=== PATIENT | female | born 1995 ===

== ENCOUNTER 2016-11-23 20:41 | Inpatient (IN) | payer SELFPAY ==
[~2016-11-23] VITALS: Ht 152.4 cm; Wt 45.0 kg
[2016-11-23] MEDS ORDERED: LACTATED RINGER'S 1000ML 1,000 ML IV SCH (21:14)
[2016-11-23] MEDS ORDERED: PENICILLIN G POTASSIUM IV 6 MU in DEXTROSE 5% 250ML 250 ML IV ONE (21:30)
[2016-11-23 21:41] LABS: HEMATOCRIT 37.7 % (37-47); MEAN CELL VOLUME 87.5 fL (80-100); MEAN CORPUSCULAR HEMOGLOBIN 30.6 pg (25-34); MEAN PLATELET VOLUME 12.6 fL (7.4-10.4); PLATELET COUNT 196 K/uL (130-400); RED BLOOD COUNT 4.31 M/uL (4.2-5.4); WHITE BLOOD COUNT 7.77 K/uL (4.8-10.8)
[2016-11-23] MEDS: LACTATED RINGER'S 1000ML 1,000 ML IV PRN ×2 (21:48→22:45)
[2016-11-23] MEDS ORDERED: EpHEDrine SULFATE INJ 50 MG/ML AMP ONE (22:10)
[2016-11-23] MEDS ORDERED: BUPIVACAINE 0.25% 30 ML VIAL ONE (22:10)
[2016-11-23] MEDS ORDERED: FENTANYL 2MCG/ML ROPIV 1.25MG/ML 100ML BAG EPI ONE (22:11)
[2016-11-23] MEDS ORDERED: FENTANYL CITRATE INJ 50 MCG/1 ML 2 ML VIAL ONE (22:11)
[2016-11-23] MEDS ORDERED: NALOXONE HCL INJ 1 MG in SODIUM CHLORIDE 0.9% 1000ML 1,000 ML IV PRN (22:23)
[2016-11-23] MEDS ORDERED: LACTATED RINGER'S 1000ML 500 ML IV PRN (22:23)
[2016-11-23] MEDS ORDERED: DiphenhydrAMINE HCL 50 MG/ML VIAL IV PRN (22:30)
[2016-11-23] MEDS ORDERED: NALOXONE HCL INJ 0.4 MG/1 ML VIAL/CARP IV PRN (22:30)
[2016-11-23] MEDS ORDERED: EpHEDrine SULFATE INJ 50 MG/ML AMP IV PRN (22:30)
[2016-11-23] MEDS ORDERED: NALBUPHINE HCL INJ 10 MG/ML AMP IV PRN (22:30)
[2016-11-23] MEDS ORDERED: ONDANSETRON INJ 2 MG/ML 2 ML VIAL IV PRN (22:30)
[2016-11-23] MEDS ORDERED: FENTANYL 2MCG/ML ROPIV 1.25MG/ML 100ML BAG EPI PRN (22:30)
--- NOTE | 2016-11-23 22:53 | Progress Note ---
Progress Note 21 female P1001 with no care presents tonight in labor with SROM clear fluid. Patient is 38.1 weeks by late ultrasound done while she was in the ER. Cervix 5/80/-2/vertex. GBS status unknown. NO allergies. FHT Cat 1. Will start antibiotics. Draw labs. Patient wants epidural for pain. Anticipate vaginal delivery. Plans to give baby up for adoption.
--- NOTE | 2016-11-23 23:22 | HISTORY & PHYSICAL EXAMINATION ---
DATE OF ADMISSION: 11/23/2016 CHIEF COMPLAINT: Labor. HISTORY OF PRESENT ILLNESS: The patient is a 21-year-old female, para 1-0-0-1, at approximately 38 weeks' and 1 day by ultrasound done in the ER at a prior hospital. The patient states that she has had no care. She is from [place], plans to give the baby up for adoption, was traveling to [place] for meeting with an contract attorney to arrange an adoption and presented with ruptured membranes and onset of labor. She is currently 5 cm, 80%, -2, vertex with clear fluid. Her GBS status is unknown. PAST MEDICAL HISTORY: Negative. PAST SURGICAL HISTORY: Negative. PAST OBSTETRIC HISTORY: x1 in [place] without any complications. ALLERGIES: No known allergies. MEDICATIONS: None. PHYSICAL EXAMINATION: HEENT: Within normal limits. LUNGS: Clear to auscultation. COR: Regular rate and rhythm. ABDOMEN: Gravid. heart tone category 1. Abdomen is soft. EXTREMITIES: Within normal limits. No edema. NEUROLOGIC: Intact. LABORATORIES: The patient is O positive, rubella immune. ASSESSMENT: Term in labor. PLAN: We will start antibiotics for GBS prophylaxis. We will draw labs. The patient is anticipating a normal vaginal delivery.
[2016-11-24 00:22] VITALS: Ht 152.4 cm; Wt 45.0 kg
[2016-11-24] MEDS ORDERED: PENICILLIN G POTASSIUM IV 3 MU in DEXTROSE 5% 100ML 100 ML IV PRN (01:30)
[2016-11-24] MEDS ORDERED: OXYTOCIN 30 UNITS/500ML NSS IV ONE (03:55)
[2016-11-24] MEDS ORDERED: LACTATED RINGER'S 1000ML 1,000 ML IV SCH (04:35)
--- NOTE | 2016-11-24 04:35 | Progress Note ---
Progress Note Delivery Note live male over intact perineum COOKIE with CANx1 and arm x1 with Apgars 9/9 weight pending. Delayed cord clamping followed by cord blood obtained and placenta delivered spontaneously and intact. No tears. EBL 200 ml. Final sponge and instrument count are correct. Mom and baby are stable.
[2016-11-24] MEDS ORDERED: ACETAMINOPHEN/CODEINE 300/30MG TAB PO PRN ×2 (04:45)
[2016-11-24] MEDS ORDERED: OXYTOCIN 30 UNITS/500ML NSS IV PRN (04:45)
[2016-11-24] MEDS ORDERED: DIPHTHERIA/TETANUS/PERTUSSIS 0.5 ML SYR/VIAL IM. ONE (04:45)
[2016-11-24] MEDS ORDERED: ACETAMINOPHEN 325 MG TAB PO PRN (04:45)
[2016-11-24] MEDS ORDERED: SUPERCREAM 0.870 % 15GM JAR EXT PRN (04:45)
[2016-11-24] MEDS ORDERED: LANOLIN OINT EXT PRN ×2 (04:45)
[2016-11-24] MEDS ORDERED: BENZOCAINE 20% AER SPR 82.5 GM CAN EXT PRN (04:45)
[2016-11-24] MEDS ORDERED: HYDROCORTISONE ACETATE 25 MG SUPP PR PRN (04:45)
[2016-11-24] MEDS: IBUPROFEN 600 MG TAB PO PRN ×3 (06:20→15:47)
[2016-11-24] MEDS ORDERED: PRENATAL VITAMIN TAB PO SCH (08:00)
[2016-11-24] MEDS ORDERED: INFLUENZA VIRUS QUAD VACCINE 0.5 ML SYR IM. ONE (08:00)
[2016-11-24] MEDS ORDERED: INFLUENZA ADMINISTRATION CHARGE ONE (08:00)
[2016-11-24] MEDS ORDERED: FERROUS SULFATE 325 MG TAB PO SCH (08:00)
--- NOTE | 2016-11-24 08:24 | Anesthesia Procedure Note ---
Anesthesia Epidural Removal Nt Date & Time Nov 24, 2016 at 08:23 Vital Signs Pain Intensity: 10.0 Notes Mental Status: alert / awake / arousable, participated in evaluation Nausea / Vomiting: adequately controlled Pain: adequately controlled Airway Patency, RR, SpO2: stable & adequate BP & HR: stable & adequate Hydration State: stable & adequate Neuraxial Anesthesia: was administered Anesthetic Complications: no major complications apparent, pt satisfied with anesthetic care Epidural: removed without complications, with tip intact
[2016-11-24 12:21] VITALS: BP 112/73; PULSE 79; TEMP 37
[2016-11-24 15:45] VITALS: BP 115/75; PULSE 65; TEMP 36.8; O2SAT 100
[2016-11-24 19:25] VITALS: BP 110/70; PULSE 70; TEMP 36.7; O2SAT 98
[2016-11-24 23:25] VITALS: BP 108/70; PULSE 69; TEMP 36.6; O2SAT 99
[2016-11-25 04:15] VITALS: BP 110/70; PULSE 62; TEMP 36.6; O2SAT 99
[2016-11-25 07:22] LABS: HEMATOCRIT 33.5 % (37-47)
[2016-11-25 08:15] VITALS: BP 111/77; PULSE 70; TEMP 36.9; O2SAT 99
--- NOTE | 2016-11-25 09:13 | OB/GYN Progress Note ---
AGILE COACH Progress Note Date of Service: Nov 25, 2016. Patient is seen and examined. Online translation services are used to communicate with her She feels well, no complaints. Ambulating without dizziness Voiding without difficulty Tolerating regular diet with out N&V Bleeding is minimal No fever/ chills/ CP/ SOB/ N&V/ Leg pain She is giving her baby for adoption. She likes to be discharged. Date Time Temp Pulse Resp B/P Pulse Ox O2 Delivery O2 Flow Rate FiO2 11/25/16 04:15 36.6 62 18 110/70 99 Room Air 11/24/16 23:25 99 Room Air 11/24/16 23:25 36.6 69 16 108/70 99 Room Air 11/24/16 19:25 36.7 70 16 110/70 98 Room Air 11/24/16 19:25 98 Room Air 11/24/16 15:45 36.8 65 18 115/75 Room Air 11/24/16 15:45 100 Room Air 11/24/16 12:21 37.0 79 18 112/73 Room Air Last 24 Hours Test 11/24/16 13:32 11/25/16 06:56 Hemoglobin 11.3 g/dL Hematocrit 33.5 % PE: General: Alert, orientedx3, NAD Abd: soft, NT, fundus firm, below Umbilicus Perineum intact, Lochia rubra minimal Ext; NT, no edema AP: 21 yo s/p , ppd# 1 VSS Afebrile doing well Desires d/c home [employer] services supervisor are involved All questions were answered Instructions were given when to call D/C home , fu in office in 6 weeks
--- NOTE | 2016-11-25 09:21 | Discharge Instructions ---
Discharge Instructions Admission Reason for Admission: Check Rupture Discharge Discharge Diagnosis / Problem: Discharge Goals Goal(s): Routine recovery after delivery Medications Continue Dispensed Medications: supercream, dermaplast, lansinoh Activity Recommendations Activity Limitations: as noted below Lifting Limitations: gradually increase as tolerated Exercise/Sports Limitations: until after follow-up appointment May Resume Sexual Activity: after follow-up appointment Shower/Bathe: no limitations Driving or Machine Use: . Current Hospital Diet Patient's current hospital diet: Regular OB Diet Discharge Diet Recommended Diet: Regular Diet Pending Studies Studies pending at discharge: no Medical Emergencies . Who to Call and When: Medical Emergencies: If at any time you feel your situation is an emergency, please call 911 immediately. . Non-Emergent Contact Non-Emergency issues call your: Surgeon Call Non-Emergent contact if: temperature is above 100.5, your pain is not controlled, wound has increased drainage, wound has increased redness . . "Provider Documentation" section prepared by Britta Kline. VTE Core Measure Inpt VTE Proph given/why not?: Treatment not indicated
--- NOTE | 2016-11-25 09:22 | OB/GYN Progress Note ---
AUDIT OFFICER Progress Note Date of Service: Nov 25, 2016. I called our office to arrange a 6 week pp visit They will create a chart for her and call her back [facility]
[2016-11-25] MEDS: IBUPROFEN 600 MG TAB PO PRN (13:12)
--- NOTE | 2016-11-25 15:54 | OB/GYN Progress Note ---
REVENUE INSPECTOR Progress Note Date of Service: Nov 25, 2016. Appointment was made for 6 wks pp visit She will not be here then She liked to tart contraception, no insurance , worried about the cost Discussed with dopeman over the phone She desires to use BCP Discussed the risks of blood cloths, in legs, lungs, side effects and liver toxicity She denies any h/o medical problems, DVT, PE, Liver problems does not smoke either No f/h of above Discussed how to use BCP, not to start before 4 week, abstinence for 6 week Discussed side effects like nausea, breast tenderness, intermenstrual spotting Will prescribe BCP All questions were answered
[2016-11-25] MEDS ORDERED: SPR28 PO (15:55)
[2016-11-25 17:30] VITALS: BP 118/79; PULSE 70; TEMP 36.8
[2016-11-25] MEDS ORDERED: BISACODYL 5 MG TABEC PO SCH (20:00)
[2016-11-26] MEDS ORDERED: BISACODYL 10 MG SUPP PR PRN (07:00)
== END 2016-11-25 17:35 | disposition home or self-care (01) | DRG 775 ==
LOC: C.OPB 20:41 → C.LD 20:41 → C.OPB 21:21 → C.LD 21:21 → C.OBG 11-24 09:27
PROVIDERS: ADMIT Obstetrics & Gynecology; ATTEND Obstetrics & Gynecology
PROC: 10E0XZZ Delivery of Products of Conception, External Approach (ICD-10-PCS; principal; 2016-11-24)
DX: O80 Encounter for full-term uncomplicated delivery (principal); Z3A.38 38 weeks gestation of pregnancy; Z37.0 Single live birth